=== PATIENT | male | born 1995 | race Caucasian/White ===

== ENCOUNTER 2017-11-12 23:43 | Emergency (ER) | payer BC ==
[~2017-11-12] VITALS: Ht 172.7 cm; Wt 124.7 kg
[2017-11-12] MEDS ORDERED: TRAZODONE HCL100 MG (23:49)
[2017-11-12] MEDS ORDERED: ZYPREXA5 MG (23:49)
[2017-11-12] MEDS ORDERED: HYDROCHLOROTH12.5 M1 (23:50)
[2017-11-12] MEDS ORDERED: LISINOPRIL (23:50)
[2017-11-12] MEDS ORDERED: PRILOSEC OTC20 MG (23:50)
[2017-11-12] MEDS ORDERED: METOPROLOL (23:50)
[2017-11-12] MEDS ORDERED: GABAPENTIN 100100 MG (23:51)
[2017-11-13 00:10] LABS: ABSOLUTE BASOPHILS 0.1 thou/uL (0.0-0.2); ABSOLUTE EOSINOPHILS 0.2 thou/uL (0.0-0.7); ABSOLUTE LYMPHOCYTES 3.5 thou/uL (0.8-5.3); ABSOLUTE MONOCYTES 0.8 thou/uL (0.0-1.2); ABSOLUTE NEUTROPHILS 5.9 thou/uL (1.6-8.1); BASOPHILS 0.6 %; EOSINOPHILS 2.3 %; HEMATOCRIT 42.9 % (42.0-52.0); HEMOGLOBIN 14.5 gm/dL (14.0-18.0); LYMPHOCYTES 33.7 %; MCH 29.1 pg (26.0-34.0); MCHC 33.8 g/dL (28.0-37.0); MCV 85.9 fL (80.0-100.0); MONOCYTES 7.2 %; MPV 8.6 fl. (7.2-11.1); NUCLEATED RBCS 0 /100WBC; PLATELET COUNT* 242 thou/uL (150-400); POLYS 56.2 %; RBC 4.99 mil/uL (4.50-6.00); RDW-CV 14.3 % (10.5-14.5); WBC 10.5 thou/uL (4.0-11.0)
[2017-11-13 00:16] LABS: CALCIUM 9.4 mg/dL (8.5-10.1); POTASSIUM 3.8 mmol/L (3.5-5.1)
[2017-11-13 00:25] LABS: URINE BILIRUBIN NEGATIVE (Negative); URINE BLOOD NEGATIVE (Negative); URINE CLARITY CLEAR; URINE COLOR YELLOW; URINE GLUCOSE-RANDOM NEGATIVE (Negative); URINE KETONES NEGATIVE (Negative); URINE LEUKOCYTES NEGATIVE (Negative); URINE NITRITE NEGATIVE (Negative); URINE PROTEIN NEGATIVE (Negative); URINE SPECIFIC GRAVITY >= 1.030 (1.005-1.030); URINE UROBILINOGEN 0.2 E.U./dl (0.2-1.0)
[2017-11-13 00:26] LABS: ALBUMIN 3.8 g/dL (3.4-5.0); TOTAL BILIRUBIN 0.2 mg/dL (<0.1-1.0); TOTAL PROTEIN 7.5 g/dL (6.4-8.2)
[2017-11-13 00:39] LABS: AMP/METHAMP POSITIVE (Negative); BARBITURATES Negative (Negative); BENZODIAZEPINES Negative (Negative); COCAINE Negative (Negative); METHADONE Negative (Negative); OPIATES Negative (Negative); PCP Negative (Negative); THC Negative (Negative)
[2017-11-13 00:39] LABS: SALICYLATE < 2.8 mg/dL (2.8-20.0)
[2017-11-13 00:47] LABS: ACETAMINOPHEN < 2 ug/mL (10-30); ALCOHOL < 10 mg/dL (<10)
[2017-11-13 02:00] VITALS: BP 110/62
--- NOTE | 2017-11-13 17:29 | EKG ---
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 Bolanos : 1995 Requested By: Vidhi Martin Order Number: [id number] MD: Jay Jiménez Measurements Intervals [place] Rate: 82 P: -6 [place]: 123 QRS: 48 QRSD: 112 T: 21 QT: 373 QTc: 436 Interpretive Statements Sinus rhythm Incomplete right bundle branch block Baseline wander in lead(s) I,II,aVR,V2 No previous ECG available for comparison Electronically Signed On 11-13-2017 17:29:29 DOUBLE END TRIMMER by Jay Jiménez [email or web address] <ELECTRONICALLY SIGNED> By: Jay Jiménez MD, [facility] 11/13/17 1729 0004 0004 Jay Jiménez MD, FACC /EPI
== END 2017-11-13 02:05 | disposition short-term general hospital (02) ==
LOC: M.ERS 23:43
PROVIDERS: Emergency Medicine
DX: T42.6X2A Poisoning by other antiepileptic and sedative-hypnotic drugs, intentional self-harm, initial encounter (principal); F31.9 Bipolar disorder, unspecified; Y92.89 Other specified places as the place of occurrence of the external cause